=== PATIENT | male | born 1970 | race Caucasian/White ===

== ENCOUNTER 2017-02-11 03:44 | Emergency (ER) | payer OTHER ==
--- NOTE | ~2017-02-11 | EKG ---
PATIENT: CIERA CASEY UNIT #: [id number] Ventricular Rate: 70 BPM Atrial Rate: 70 BPM P-R Interval: 136 ms QRS Duration: 94 ms Q-T Interval: 394 ms QTC Calculation(Bezet): 425 ms P [place]: 48 degrees Calculated R [place]: 15 degrees Calculated T [place]: -103 degrees Diagnosis Line: Normal sinus rhythm Diagnosis Line: T wave abnormality, consider inferior ischemia Diagnosis Line: Abnormal ECG Diagnosis Line: No previous ECGs available Diagnosis Line: Confirmed by DAVID GAMEZ MD ([id number]) on Diagnosis Line: 02/13/2017 3:23:24 PM INTERPRETING MD: FRANCO HORN
--- NOTE | ~2017-02-11 | CR72 ---
[facility]. [facility] A Service of [facility] & [facility] RADIOLOGY TEXT RESULTS PATIENT: CIERA CASEY LOCATION: SED : 68 UNIT #: [id number] AGE: [address]: Juan Rodriguez DO SEX: M ORDER DR: [id number] [place] [id number] E MR#: [id number] Acc #: [id number] NAME: CIERA CASEY : 1970 SEX: M STUDY DATE/TIME: 02/11/2017 4:02 UNIT: SED ROOM: STUDY DESCRIPTION: CR Chest Single View Portable Attending Physician: Juan Rodriguez Ordering Physician: Juan Rodriguez Primary Care Physician: Albertina Brown MEDICAL IMAGING REPORT This report is preliminary unless electronic signature is present. EXAM Portable chest INDICATIONS Left-sided chest pain this morning. PROCEDURE Frontal view chest. COMPARISON 06/16/2015 FINDINGS Stable cardiomegaly. Pulmonary vessels are similar, and remain prominent. No dense consolidation pleural fluid or pneumothorax. IMPRESSION Stable cardiomegaly. Central pulmonary vessels, are prominent and similar to the previous study Dictated by... Oumar Kee M.D. THIS IS AN ELECTRONICALLY VERIFIED REPORT Oumar Kee M.D. at 02/11/2017 10:05 PM NATALIA/tyler TD: 02/11/2017 04:39 JOB #: [id number] MEDICAL IMAGING REPORT Page 1 of 1
[~2017-02-11 03:44] MED LIST: ASPIRIN81 M2 PO; CARVEDILOL6.25 MG PO; FISH OIL 1,0001 EAC3 PO; LASIX20 MG PO; MOBIC15 MG PO; POTASSIUM CITRATE PO; UROCIT K PO; ZOLOFT PO
[2017-02-11] MEDS ORDERED: VIT E (03:54)
[2017-02-11 04:06] LABS: BASOPHIL# 0.1 X10e3 (0-0.3); BASOPHIL% 0.8 % (0-2.5); EOSINOPHIL# 0.3 X10e3 (0-0.7); HEMATOCRIT 44.8 % (38.0-50.0); HEMOGLOBIN 15.1 gm/dL (13.0-16.0); LYMPHOCYTE# 4.1 X10e3 (1.0-3.5); LYMPHOCYTE% 40.9 % (17.0-45.0); MEAN CELL VOLUME 84.4 FL (83-96); MEAN CORPUSCULAR HEMOGLOBIN 28.5 PG (28-34); MEAN CORPUSCULAR HGB CONC 33.8 g/dL (30-36); MEAN PLATELET VOLUME 9.8 FL (6.5-11.5); MONOCYTE# 0.7 X10e3 (0-1.0); NEUTROPHIL# 4.9 X10e3 (1.5-7.1); NEUTROPHIL% 48.3 % (40-75); PLATELET COUNT 136 X10e3 (140-420); RED CELL DISTRIBUTION WIDTH 14.7 % (11.0-15.5); WHITE BLOOD COUNT 10.1 X10e3 (4.0-10.5)
[2017-02-11 04:07] LABS: DIFF IND NO
[2017-02-11 04:15] LABS: INR 1.1; PROTHROMBIN TIME (PATIENT) 12.4 SECONDS (9.5-12.4)
[2017-02-11 04:20] LABS: POC - CKMB <1.0 ng/mL (0.0-7.9); POC - TROPONIN <0.05 ng/mL (<=0.05)
[2017-02-11 04:22] LABS: PARTIAL THROMBOPLASTIN TIME 33.7 SECONDS (25.6-38.1)
[2017-02-11 04:26] LABS: ALBUMIN SERUM 3.9 g/dL (3.5-5.0); ALKALINE PHOSPHATASE 74 U/L (32-92); ALT (SGPT) 16 U/L (10-40); AST (SGOT) 12 U/L (10-42); BILIRUBIN, DIRECT <0.1 mg/dL (0.0-0.2); BILIRUBIN,INDIRECT 0.5 mg/dL (0.0-0.9); BILIRUBIN,TOTAL 0.6 mg/dL (0.2-2.0); BLOOD UREA NITROGEN 14 mg/dL (9-23); CALCIUM SERUM 8.4 mg/dL (8.4-10.2); CARBON DIOXIDE 26 mmol/L (22-31); GLOM FILT RATE Estimated 89.2 mL/min (>60); GLUCOSE FASTING 110 mg/dL (70-110); PROTEIN TOTAL SERUM 7.4 g/dL (6.0-8.3)
[2017-02-11 04:27] LABS: CHLORIDE 108 mmol/L (100-111); POTASSIUM 3.6 mmol/L (3.5-5.1); SODIUM 140 mmol/L (135-145)
[2017-02-11 05:54] LABS: POC - CKMB <1.0 ng/mL (0.0-7.9); POC - TROPONIN <0.05 ng/mL (<=0.05)
== END 2017-02-11 07:56 ==
LOC: SED 03:44
PROVIDERS: Emergency Medicine
DX: R07.89 Other chest pain (principal); I16.0 Hypertensive urgency; F41.9 Anxiety disorder, unspecified; F17.210 Nicotine dependence, cigarettes, uncomplicated; Z90.89 Acquired absence of other organs; Z79.899 Other long term (current) drug therapy
CPT/HCPCS: 36415; 71010; 80048; 80076; 82553; 83880; 84484; 85025; 85610; 85730; 93005; 99285